=== PATIENT | male | born 1995 | race African-American/Black ===

== ENCOUNTER 2017-08-16 21:30 | Emergency (ER) | payer MEDICAID ==
[2017-08-16] MEDS: IBUPROFEN 800 MG TABLET. PO (23:22)
[2017-08-16] MEDS: IV NORMAL SALINE 1000ML BAG 500 ML IV (23:45)
[2017-08-16 23:54] LABS: ANION GAP 7 (6-14); BLOOD UREA NITROGEN 14 mg/dL (8-26); CALCIUM 9.3 mg/dL (8.5-10.1); CARBON DIOXIDE 28 mmol/L (21-32); CHLORIDE 106 mmol/L (98-107); CREATININE 0.9 mg/dL (0.7-1.3); GFR 128.9; GLUCOSE 78 mg/dL (70-99); POTASSIUM 4.1 mmol/L (3.5-5.1); SODIUM 141 mmol/L (136-145)
[2017-08-17] LABS: CREATINE KINASE 222 U/L (39-308)
== END 2017-08-17 01:04 | disposition home or self-care (01) ==
LOC: ER 08-17 01:04
DX: R07.2 Precordial pain (principal); Z59.0 Homelessness; R53.1 Weakness; Z88.5 Allergy status to narcotic agent
CPT/HCPCS: 36415; 80048; 82550; 93005; 96360; 99285-25; J7030